=== PATIENT | male | born 1965 | race Caucasian/White ===

== ENCOUNTER 2018-10-16 08:55 | Outpatient (CLI) | payer BC, OTHER | END 2018-10-16 23:59 | disposition home or self-care (01) | LOC: RAD 08:55 | PROVIDERS: ATTEND Family Medicine | DX: M75.111 Incomplete rotator cuff tear or rupture of right shoulder, not specified as traumatic (principal); I65.23 Occlusion and stenosis of bilateral carotid arteries; R94.31 Abnormal electrocardiogram [ECG] [EKG] | CPT/HCPCS: 71046; 93017; 93350 ==

== ENCOUNTER 2018-10-20 10:11 | Inpatient (IN) | payer OTHER ==
[~2018-10-20] VITALS: Ht 170.2 cm; Wt 103.4 kg
--- NOTE | 2018-10-20 10:32 | NUR ---
PT WITH C/O INABILITY TO URINATE APPROXIMATELY 2100 10/19. ED MD AT BEDSIDE, WITH BLADDER SCAN, MD WOULD LIKE TO HAVE PT ATTEMPT TO VOID, NO ORDERS FOR CATHETER AT THIS TIME. PT DENIES N/V, SOB. PT DOES HAVE PAIN IN ABD, SIG OTHER STATES " THIS IS THE WORST HE HAS HAD IT, HE NEVER CALLS IN TO WORK AND HE DID THIS TIME" PT ON NIBP, CONT PULSE OX.
[2018-10-20 10:48] LABS: BASOPHILS # (AUTO) 0.01 x10^3/uL (0-0.1); BASOPHILS % (AUTO) 0 % (0-1); EOSINOPHILS % (AUTO) 1 % (1-7); LYMPHOCYTES # (AUTO) 1.06 x10^3/uL (1-3.4); LYMPHOCYTES % (AUTO) 6 % (22-44); MD NO; MEAN CORPUSCULAR HEMOGLOBIN 34.1 pg (27.5-34.5); MEAN CORPUSCULAR HGB CONC 34.1 g/dL (33.2-36.2); MEAN CORPUSCULAR VOLUME 100.1 fL (81-97); MEAN PLATELET VOLUME 8.3 fL (7.4-10.4); MONOCYTES # (AUTO) 0.26 x10^3/uL (0.2-0.8); MONOCYTES % (AUTO) 2 % (2-9); NEUTROPHILS % (AUTO) 92 % (42-75); PLATELET COUNT 218 x10^3/uL (130-400); RED BLOOD COUNT 4.96 x10^6/uL (4.38-5.82); RED CELL DISTRIBUTION WIDTH 13.2 % (9.4-14.8)
[2018-10-20] MEDS ORDERED: MORPHINE SULFATE 4 MG/ML, 1ML ONE ×2 (10:49→13:28)
[2018-10-20] MEDS: MORPHINE SULFATE 4 MG/ML, 1ML IVPush PRN ×2 (10:50→13:33)
[2018-10-20 10:57] LABS: ANION GAP 10 mmol/L (5-15); CALCIUM 9.7 mg/dL (8.5-10.1); CHLORIDE 111 mmol/L (98-107)
[2018-10-20] MEDS ORDERED: SODIUM CHLORIDE FLUSH 10ML SYR IVF ONE (11:00)
--- NOTE | 2018-10-20 11:00 | NUR ---
PT UNABLE TO VOID, UPDATED, ANTICPATE VITAL PLACEMENT
[2018-10-20 11:03] LABS: ALANINE AMINOTRANSFERASE 31 U/L (12-78); ALKALINE PHOSPHATASE 47 U/L (45-117); CREATININE 1.28 mg/dL (0.7-1.3)
--- NOTE | 2018-10-20 11:12 | NUR ---
PIV ESTABLISHED, PT MEDICATED FOR PAIN. PT TO ATTEMPT TO VOID
--- NOTE | 2018-10-20 12:26 | NUR ---
VITAL CATHETER PLACED, PT TOLERATED WELL. ADJUSTED IN BED FOR COMFORT. PT TO GO TO CT
[2018-10-20 12:37] LABS: MICROSCOPIC NOT IND
[2018-10-20 12:41] LABS: CULTURE INDICATED? NO
[2018-10-20] MEDS ORDERED: OMNIPAQUE 350 MG/ML, 100ML BOTTLE ONE (12:45)
[2018-10-20] MEDS ORDERED: ONDANSETRON 2MG/ML, 2ML ONE ×2 (13:20→13:21)
--- NOTE | 2018-10-20 13:24 | NUR ---
PT NO C/O NAUSEA, PROVIDED EMESIS BAG. PT DID VOMIT. EDMD AT BEDSIDE, ZOFRAN ORDERED AND ADMINISTERED. WILL CTM
[2018-10-20] MEDS ORDERED: METRONIDAZOLE PMX 500MG/100ML 100 ML IV ONE (13:30)
[2018-10-20] MEDS ORDERED: AMPICILLIN/SULBACTAM 3 GM in SODIUM CHLORIDE 0.9% 100 ML IV ONE (13:30)
[2018-10-20] MEDS ORDERED: ONDANSETRON 2MG/ML, 2ML IVPush ONE (13:30)
--- NOTE | 2018-10-20 13:43 | NUR ---
PT PLACED ON 2L NC.
[2018-10-20] MEDS ORDERED: METRONIDAZOLE PMX 500MG/100ML 100 ML ONE (13:48)
--- NOTE | 2018-10-20 13:58 | NUR ---
LAB AT FOR BLOOD CULTURES. PATIENT RECENTLY MEDICATED. IV ANBX TO HANG AFTER BLOOD CULTURES
[2018-10-20] MEDS ORDERED: hydrALAzine 20 MG/ML, 1ML IVPush PRN (14:00)
[2018-10-20] MEDS ORDERED: ACETAMINOPHEN 325 MG TABLET PO PRN (14:00)
--- NOTE | 2018-10-20 14:11 | NUR ---
DOLLY UPDATED ON PLAN OF CARE. C/O OF 8/10 PAIN BUT INTERMITTENTLY SLEEPING DURING CONVERSATON AND REQUIRING MORE OXYGEN (4L NC) THAN INITIALLY.
--- NOTE | 2018-10-20 14:43 | NUR ---
REPORT GIVEN TO MICK RUBIO
[2018-10-20 15:23] VITALS: BP 126/83
[2018-10-20] MEDS: HYDROmorphone 2 MG/ML, 1ML IVPush PRN ×3 (15:41→21:58)
[2018-10-20] MEDS: D5%-0.45NACL+KCL 20MEQ 1,000 ML IV SCH (16:47)
[2018-10-20] MEDS: FLUCONAZOLE 200 MG/100 ML 100 ML IV SCH (16:47)
[2018-10-20] MEDS ORDERED: ALPR-475 PO (17:32)
[2018-10-20] MEDS ORDERED: LISI-167 PO (17:32)
[2018-10-20] MEDS ORDERED: FLUC200T4 PO (17:32)
[2018-10-20] MEDS ORDERED: RIVA20TA PO (17:51)
[2018-10-20] MEDS: PIPERACILLIN/TAZO/PMX 4.5GM 100 ML IV SCH (18:38)
[2018-10-20 20:03] VITALS: BP 131/84
[2018-10-21] MEDS: PIPERACILLIN/TAZO/PMX 4.5GM 100 ML IV SCH ×3 (01:52→17:42)
[2018-10-21 01:59] VITALS: BP 117/74
[2018-10-21] MEDS: D5%-0.45NACL+KCL 20MEQ 1,000 ML IV SCH ×3 (02:38→20:41)
[2018-10-21 06:32] LABS: MEAN CORPUSCULAR HGB CONC 33.6 g/dL (33.2-36.2); MEAN CORPUSCULAR VOLUME 101.2 fL (81-97); MEAN PLATELET VOLUME 8.7 fL (7.4-10.4); PLATELET COUNT 194 x10^3/uL (130-400); RED BLOOD COUNT 4.82 x10^6/uL (4.38-5.82); RED CELL DISTRIBUTION WIDTH 13.5 % (9.4-14.8)
[2018-10-21 06:34] LABS: ANION GAP 7 mmol/L (5-15); CALCIUM 8.9 mg/dL (8.5-10.1); CHLORIDE 107 mmol/L (98-107)
[2018-10-21 06:36] LABS: CREATININE 1.24 mg/dL (0.7-1.3)
[2018-10-21 07:11] VITALS: BP 119/77
[2018-10-21 07:27] LABS: MD YES
[2018-10-21 07:29] LABS: BAND#(MANUAL) 2.86 x10^3/uL; BANDS%(MANUAL) 13 % (0-7); LYMPH#(MANUAL) 1.98 x10^3/uL (1-3.4); LYMPHS% (MANUAL) 9 % (22-44); METAMYELOCYTES# (MANUAL) 0.22 x10^3/uL (0-0); METAMYELOCYTES% (MANUAL) 1 % (0-1); MONOS#(MANUAL) 0.22 x10^3/uL (0.3-2.7); MONOS% (MANUAL) 1 % (2-9); SEG#(MANUAL) 16.72 x10^3/uL (1.8-6.8); SEGS% (MANUAL) 76 % (42-75)
[2018-10-21 07:30] LABS: <PLATELET ESTIMATE> ADEQUATE; <PLT MORPHOLOGY> NORMAL PLT MORPH; POLYCHROMASIA 1+
[2018-10-21] MEDS: HYDROmorphone 2 MG/ML, 1ML IVPush PRN ×4 (09:39→20:41)
[2018-10-21 12:31] VITALS: BP 119/77
[2018-10-21] MEDS: ONDANSETRON 2MG/ML, 2ML IVPush PRN ×2 (13:38→20:41)
[2018-10-21] MEDS: FLUCONAZOLE 200 MG/100 ML 100 ML IV SCH (13:39)
[2018-10-21] MEDS: OXYcodone IR 5MG TABLET PO PRN (15:34)
[2018-10-21 19:50] VITALS: BP 123/77
[2018-10-21 20:43] VITALS: BP 120/87
[2018-10-22] MEDS: HYDROmorphone 2 MG/ML, 1ML IVPush PRN ×7 (00:27→23:43)
[2018-10-22] MEDS: PIPERACILLIN/TAZO/PMX 4.5GM 100 ML IV SCH ×3 (01:34→17:12)
[2018-10-22 03:27] VITALS: BP 118/76
[2018-10-22] MEDS: D5%-0.45NACL+KCL 20MEQ 1,000 ML IV SCH ×3 (04:25→23:43)
[2018-10-22] MEDS: ONDANSETRON 2MG/ML, 2ML IVPush PRN ×2 (04:30→13:50)
[2018-10-22 07:02] VITALS: BP 119/76
[2018-10-22 08:20] LABS: MEAN CORPUSCULAR HEMOGLOBIN 33.1 pg (27.5-34.5); MEAN CORPUSCULAR VOLUME 100.2 fL (81-97); MEAN PLATELET VOLUME 8.2 fL (7.4-10.4); PLATELET COUNT 190 x10^3/uL (130-400); RED CELL DISTRIBUTION WIDTH 13.3 % (9.4-14.8)
[2018-10-22 08:28] LABS: ALBUMIN 2.8 g/dL (3.4-5.0); ANION GAP 7 mmol/L (5-15); CALCIUM 8.8 mg/dL (8.5-10.1); CHLORIDE 108 mmol/L (98-107)
[2018-10-22 08:31] LABS: ALANINE AMINOTRANSFERASE 17 U/L (12-78); ALKALINE PHOSPHATASE 60 U/L (45-117); BILIRUBIN,TOTAL 0.8 mg/dL (0.2-1.0); TOTAL PROTEIN 7.2 g/dL (6.4-8.2)
[2018-10-22 08:37] LABS: BASOPHILS # (AUTO) 0.01 x10^3/uL (0-0.1); BASOPHILS % (AUTO) 0 % (0-1); EOSINOPHILS # (AUTO) 0.01 x10^3/uL (0-0.4); EOSINOPHILS % (AUTO) 0 % (1-7); LYMPHOCYTES # (AUTO) 0.93 x10^3/uL (1-3.4); LYMPHOCYTES % (AUTO) 5 % (22-44); MD SCAN; MONOCYTES # (AUTO) 0.48 x10^3/uL (0.2-0.8); MONOCYTES % (AUTO) 3 % (2-9); NEUTROPHILS % (AUTO) 92 % (42-75)
[2018-10-22] MEDS: FLUCONAZOLE 200 MG/100 ML 100 ML IV SCH (13:50)
[2018-10-22 13:53] VITALS: BP 118/73
[2018-10-22 20:15] VITALS: BP 128/81
[2018-10-23] MEDS: PIPERACILLIN/TAZO/PMX 4.5GM 100 ML IV SCH ×3 (01:22→18:00)
[2018-10-23 03:59] VITALS: BP 114/76
[2018-10-23] MEDS: HYDROmorphone 2 MG/ML, 1ML IVPush PRN ×3 (04:27→20:44)
[2018-10-23] MEDS: ONDANSETRON 2MG/ML, 2ML IVPush PRN ×2 (05:01→14:39)
[2018-10-23 06:51] VITALS: BP 136/84
[2018-10-23] MEDS: D5%-0.45NACL+KCL 20MEQ 1,000 ML IV SCH ×2 (09:08→18:00)
[2018-10-23 09:22] LABS: MEAN CORPUSCULAR HEMOGLOBIN 32.8 pg (27.5-34.5); MEAN CORPUSCULAR HGB CONC 33.3 g/dL (33.2-36.2); MEAN CORPUSCULAR VOLUME 98.7 fL (81-97); PLATELET COUNT 204 x10^3/uL (130-400); RED BLOOD COUNT 4.44 x10^6/uL (4.38-5.82); RED CELL DISTRIBUTION WIDTH 13.3 % (9.4-14.8)
[2018-10-23 09:28] LABS: ANION GAP 9 mmol/L (5-15); CALCIUM 8.4 mg/dL (8.5-10.1); CHLORIDE 107 mmol/L (98-107); CREATININE 0.87 mg/dL (0.7-1.3)
[2018-10-23 09:43] LABS: MD YES
[2018-10-23 09:45] LABS: <PLATELET ESTIMATE> ADEQUATE; <PLT MORPHOLOGY> NORMAL PLT MORPH; <RBC MORPHOLOGY> NORMAL; BAND#(MANUAL) 0.97 x10^3/uL; BANDS%(MANUAL) 7 % (0-7); EOS#(MANUAL) 0.41 x10^3/uL (0.0-0.4); EOS% (MANUAL) 3 % (1-7); LYMPH#(MANUAL) 1.24 x10^3/uL (1-3.4); LYMPHS% (MANUAL) 9 % (22-44); MONOS#(MANUAL) 0.97 x10^3/uL (0.3-2.7); MONOS% (MANUAL) 7 % (2-9); SEG#(MANUAL) 10.21 x10^3/uL (1.8-6.8); SEGS% (MANUAL) 74 % (42-75)
[2018-10-23] MEDS ORDERED: POTASSIUM CHLORIDE 20 MEQ TAB.ER.PRT PO ONE (10:30)
[2018-10-23] MEDS: DOCUSATE 100 MG CAPSULE PO SCH ×2 (11:31→20:44)
[2018-10-23 12:53] VITALS: BP 154/91
[2018-10-23] MEDS: FLUCONAZOLE 200 MG/100 ML 100 ML IV SCH (14:31)
[2018-10-23] MEDS: OXYcodone IR 5MG TABLET PO PRN (18:40)
[2018-10-23 21:02] VITALS: BP 129/87
[2018-10-24] MEDS: D5%-0.45NACL+KCL 20MEQ 1,000 ML IV SCH ×3 (01:58→20:31)
[2018-10-24] MEDS: PIPERACILLIN/TAZO/PMX 4.5GM 100 ML IV SCH ×3 (01:58→17:22)
[2018-10-24 02:14] VITALS: BP 151/83
[2018-10-24] MEDS: HYDROmorphone 2 MG/ML, 1ML IVPush PRN (03:23)
[2018-10-24 07:49] VITALS: BP 144/91
[2018-10-24] MEDS: DOCUSATE 100 MG CAPSULE PO SCH ×2 (08:54→20:55)
[2018-10-24 09:24] LABS: MEAN CORPUSCULAR HEMOGLOBIN 33.1 pg (27.5-34.5); MEAN CORPUSCULAR HGB CONC 33.7 g/dL (33.2-36.2); MEAN CORPUSCULAR VOLUME 98.3 fL (81-97); PLATELET COUNT 199 x10^3/uL (130-400); RED BLOOD COUNT 4.31 x10^6/uL (4.38-5.82); RED CELL DISTRIBUTION WIDTH 13.2 % (9.4-14.8)
[2018-10-24 09:27] LABS: ANION GAP 7 mmol/L (5-15); CALCIUM 8.5 mg/dL (8.5-10.1); CHLORIDE 107 mmol/L (98-107); CREATININE 0.87 mg/dL (0.7-1.3)
[2018-10-24 09:41] LABS: BASOPHILS # (AUTO) 0.03 x10^3/uL (0-0.1); BASOPHILS % (AUTO) 0 % (0-1); EOSINOPHILS # (AUTO) 0.07 x10^3/uL (0-0.4); EOSINOPHILS % (AUTO) 1 % (1-7); LYMPHOCYTES # (AUTO) 1.28 x10^3/uL (1-3.4); LYMPHOCYTES % (AUTO) 11 % (22-44); MD SCAN; MONOCYTES # (AUTO) 0.91 x10^3/uL (0.2-0.8); MONOCYTES % (AUTO) 8 % (2-9); NEUTROPHILS # (AUTO) 9.14 x10^3/uL (1.8-6.8); NEUTROPHILS % (AUTO) 80 % (42-75)
[2018-10-24] MEDS: SIMETHICONE 125 MG CHEW TAB PO PRN ×2 (10:37→17:39)
[2018-10-24] MEDS: OXYcodone IR 5MG TABLET PO PRN ×3 (10:44→19:16)
[2018-10-24 13:19] VITALS: BP 149/96
[2018-10-24] MEDS: FLUCONAZOLE 200 MG/100 ML 100 ML IV SCH (14:53)
[2018-10-24] MEDS: PROMETHAZINE 25MG TABLET PO PRN (15:03)
[2018-10-24 19:02] VITALS: BP 127/75
[2018-10-24] MEDS: MELATONIN 5 MG TABLET PO PRN (20:55)
[2018-10-25] MEDS: PIPERACILLIN/TAZO/PMX 4.5GM 100 ML IV SCH ×3 (02:07→18:09)
[2018-10-25 02:08] VITALS: BP 124/76
[2018-10-25] MEDS: SIMETHICONE 125 MG CHEW TAB PO PRN ×2 (02:16→12:13)
[2018-10-25] MEDS: OXYcodone IR 5MG TABLET PO PRN ×2 (02:20→12:10)
[2018-10-25] MEDS: D5%-0.45NACL+KCL 20MEQ 1,000 ML IV SCH ×2 (05:12→16:00)
[2018-10-25 05:58] LABS: BASOPHILS # (AUTO) 0.06 x10^3/uL (0-0.1); BASOPHILS % (AUTO) 1 % (0-1); EOSINOPHILS # (AUTO) 0.12 x10^3/uL (0-0.4); EOSINOPHILS % (AUTO) 1 % (1-7); LYMPHOCYTES # (AUTO) 1.83 x10^3/uL (1-3.4); LYMPHOCYTES % (AUTO) 15 % (22-44); MD NO; MEAN CORPUSCULAR HEMOGLOBIN 33.8 pg (27.5-34.5); MEAN CORPUSCULAR HGB CONC 33.7 g/dL (33.2-36.2); MEAN CORPUSCULAR VOLUME 100.2 fL (81-97); MEAN PLATELET VOLUME 8.1 fL (7.4-10.4); MONOCYTES # (AUTO) 1.24 x10^3/uL (0.2-0.8); MONOCYTES % (AUTO) 10 % (2-9); NEUTROPHILS # (AUTO) 9.28 x10^3/uL (1.8-6.8); NEUTROPHILS % (AUTO) 74 % (42-75); PLATELET COUNT 206 x10^3/uL (130-400); RED BLOOD COUNT 4.21 x10^6/uL (4.38-5.82); RED CELL DISTRIBUTION WIDTH 13.5 % (9.4-14.8)
[2018-10-25 06:03] LABS: ANION GAP 7 mmol/L (5-15); CALCIUM 8.8 mg/dL (8.5-10.1); CHLORIDE 103 mmol/L (98-107); CREATININE 0.83 mg/dL (0.7-1.3)
[2018-10-25 08:25] VITALS: BP 131/81
[2018-10-25] MEDS: DOCUSATE 100 MG CAPSULE PO SCH ×2 (09:00→12:11)
[2018-10-25] MEDS: PROMETHAZINE 25MG TABLET PO PRN (12:35)
[2018-10-25 13:00] VITALS: BP 127/74
[2018-10-25] MEDS: FLUCONAZOLE 200 MG/100 ML 100 ML IV SCH (14:59)
[2018-10-25 18:43] VITALS: BP 139/87
[2018-10-25] MEDS ORDERED: KETOROLAC 30 MG/1 ML IVPush ONE (19:30)
[2018-10-25] MEDS: MELATONIN 5 MG TABLET PO PRN (22:42)
[2018-10-26 01:21] VITALS: BP 125/76
[2018-10-26] MEDS: PIPERACILLIN/TAZO/PMX 4.5GM 100 ML IV SCH (01:53)
[2018-10-26] MEDS: D5%-0.45NACL+KCL 20MEQ 1,000 ML IV SCH (01:53)
[2018-10-26 05:11] LABS: BASOPHILS # (AUTO) 0.05 x10^3/uL (0-0.1); BASOPHILS % (AUTO) 0 % (0-1); EOSINOPHILS # (AUTO) 0.21 x10^3/uL (0-0.4); EOSINOPHILS % (AUTO) 2 % (1-7); LYMPHOCYTES % (AUTO) 19 % (22-44); MD NO; MEAN CORPUSCULAR HEMOGLOBIN 33.8 pg (27.5-34.5); MEAN CORPUSCULAR HGB CONC 33.7 g/dL (33.2-36.2); MEAN CORPUSCULAR VOLUME 100.3 fL (81-97); MEAN PLATELET VOLUME 8.1 fL (7.4-10.4); MONOCYTES # (AUTO) 1.17 x10^3/uL (0.2-0.8); MONOCYTES % (AUTO) 10 % (2-9); NEUTROPHILS # (AUTO) 8.14 x10^3/uL (1.8-6.8); NEUTROPHILS % (AUTO) 69 % (42-75); PLATELET COUNT 223 x10^3/uL (130-400); RED BLOOD COUNT 4.17 x10^6/uL (4.38-5.82); RED CELL DISTRIBUTION WIDTH 13.4 % (9.4-14.8)
[2018-10-26 05:22] LABS: ANION GAP 8 mmol/L (5-15); CALCIUM 8.6 mg/dL (8.5-10.1); CHLORIDE 104 mmol/L (98-107); CREATININE 1.05 mg/dL (0.7-1.3)
[2018-10-26 07:04] VITALS: BP 158/93
[2018-10-26] MEDS ORDERED: POTASSIUM CHLORIDE 40 MEQ in SODIUM CHLORIDE 0.9% 500 ML IV ONE (07:30)
[2018-10-26] MEDS ORDERED: COLCHICINE 0.6 MG TABLET PO ONE (07:30)
[2018-10-26] MEDS ORDERED: metroNIDAZOLE 500 MG TABLET PO SCH (07:30)
[2018-10-26] MEDS ORDERED: COLCHICINE 0.6 MG TABLET PO SCH (09:00)
[2018-10-26] MEDS ORDERED: CIPROFLOXACIN 500 MG TABLET PO SCH (09:00)
[2018-10-26] MEDS: DOCUSATE 100 MG CAPSULE PO SCH (09:46)
[2018-10-26] MEDS ORDERED: CIPR500T87 PO (13:37)
[2018-10-26] MEDS ORDERED: COLC0.6T37 PO (13:37)
[2018-10-26] MEDS ORDERED: METR500T PO (13:37)
[2018-10-26] MEDS ORDERED: COLCHICINE 0.6 MG TABLET PO STA (13:38)
[2018-10-26 14:15] VITALS: BP 135/79
[2018-10-27] MEDS ORDERED: FLUCONAZOLE 200 MG TABLET PO SCH (09:00)
== END 2018-10-26 16:10 | disposition home or self-care (01) | DRG 872 ==
LOC: ED 12:23 → EDIP 14:01 → 4EST 15:11
PROVIDERS: ADMIT Internal Medicine; ATTEND Internal Medicine
PROC: 0T9B70Z Drainage of Bladder with Drainage Device, Via Natural or Artificial Opening (ICD-10-PCS; principal; 2018-10-20)
DX: A41.4 Sepsis due to anaerobes (principal); D68.51 Activated protein C resistance; F13.20 Sedative, hypnotic or anxiolytic dependence, uncomplicated; K57.20 Diverticulitis of large intestine with perforation and abscess without bleeding; B38.0 Acute pulmonary coccidioidomycosis; F12.90 Cannabis use, unspecified, uncomplicated; F41.9 Anxiety disorder, unspecified; G47.00 Insomnia, unspecified; I10 Essential (primary) hypertension; K59.00 Constipation, unspecified; M10.9 Gout, unspecified; R32 Unspecified urinary incontinence; Z79.01 Long term (current) use of anticoagulants; Z86.711 Personal history of pulmonary embolism; Z86.718 Personal history of other venous thrombosis and embolism
CPT/HCPCS: 36415; 99291; Q0169; 74177; 80048; 80053; 81003; 83605; 83690; 85025; 87040; 87076; 96374; 96375; G0378; J0295; J1170; J1885; J2405; J2543; J3480; Q9967; J1450; J2270; J7040

== ENCOUNTER 2018-11-27 09:28 | Inpatient (IN) | payer OTHER ==
[~2018-11-27] VITALS: Ht 171.4 cm; Wt 102.5 kg
[~2018-11-27 09:28] MED LIST: ALBU18HF INH; ALPR0.5T7 PO; CIPR500T87 PO; COLC0.6T37 PO; FLUC200T4 PO; LISI-167 PO; METR-90 PO; METR500T PO; NEOM500T PO; OMEP20TA62 PO; RIVA20TA PO; SIME80TA15 PO
[2018-11-27] MEDS ORDERED: LACTATED RINGERS 1,000 ML IV SCH (09:51)
[2018-11-27 09:53] VITALS: BP 128/66
[2018-11-27] MEDS ORDERED: BUPIVACAINE/PF-EPI 0.5% 1:200K ONE (10:11)
[2018-11-27] MEDS ORDERED: INDOCYANINE GREEN 25 MG VIAL ONE (10:12)
[2018-11-27] MEDS ORDERED: LABETALOL 5MG/ML, 20ML IV PRN (10:30)
[2018-11-27] MEDS ORDERED: ONDANSETRON 2MG/ML, 2ML IVPush PRN (10:30)
[2018-11-27] MEDS ORDERED: OXYcodone 5 MG/5 ML ORAL.SOL UDC PO PRN (10:30)
[2018-11-27] MEDS ORDERED: MIDAZOLAM 1 MG/ML, 2ML IV PRN (10:30)
[2018-11-27] MEDS ORDERED: MEPERIDINE/PF 25MG/0.5ML IVPush PRN (10:30)
[2018-11-27] MEDS ORDERED: ROCURONIUM 10MG/ML,5ML ONE (10:39)
[2018-11-27] MEDS ORDERED: DEXAMETHASONE 4 MG/ML, 1ML ONE (10:39)
[2018-11-27] MEDS ORDERED: KETAMINE 10 MG/ML, 20ML ONE (10:39)
[2018-11-27] MEDS ORDERED: ONDANSETRON 2MG/ML, 2ML ONE (10:39)
[2018-11-27] MEDS ORDERED: PROPOFOL 10 MG/ML, 20ML ONE (10:39)
[2018-11-27] MEDS ORDERED: CEFOTETAN PMX 2GM/50ML 50 ML IVPB ONE (10:39)
[2018-11-27] MEDS ORDERED: METOCLOPRAMIDE 5 MG/ML, 2ML ONE (10:39)
[2018-11-27] MEDS ORDERED: FENTANYL PF 100 MCG/2ML ONE ×4 (10:44→14:03)
[2018-11-27] MEDS ORDERED: MIDAZOLAM 1 MG/ML, 2ML ONE (10:44)
[2018-11-27] MEDS ORDERED: SUGAMMADEX 200 MG/2 ML IVPush ONE (13:00)
[2018-11-27] MEDS ORDERED: OXYcodone 5 MG/5 ML ORAL.SOL UDC ONE (13:43)
[2018-11-27] MEDS: FENTANYL PF 100 MCG/2ML IV PRN ×4 (13:50→14:08)
[2018-11-27] MEDS ORDERED: HYDROmorphone 2 MG/ML, 1ML ONE (14:20)
[2018-11-27] MEDS: HYDROmorphone 1 MG/ML, 1ML INJ IV PRN ×4 (14:22→14:38)
[2018-11-27] MEDS ORDERED: MEPERIDINE/PF 25MG/ML,1ML ONE (14:44)
[2018-11-27] MEDS ORDERED: DEXAMETHASONE 4 MG/ML, 1ML IVPush PRN (17:00)
[2018-11-27] MEDS ORDERED: HALOPERIDOL 5 MG/ML IVPush PRN (17:00)
[2018-11-27] MEDS ORDERED: ALBUTEROL SULFATE 2.5 MG/3 ML NPPB PRN (17:00)
[2018-11-27] MEDS ORDERED: LORazepam 2 MG/ML, 1ML IVPush PRN (17:00)
[2018-11-27] MEDS ORDERED: LORazepam 1MG TABLET PO PRN (17:00)
[2018-11-27] MEDS ORDERED: SCOPOLAMINE PATCH, 1.5MG PATCH.TD72 TD PRN (17:00)
[2018-11-27] MEDS ORDERED: ONDANSETRON 2MG/ML, 2ML IV PRN (17:00)
[2018-11-27] MEDS ORDERED: DIPHENHYDRAMINE 25 MG CAPSULE PO PRN (17:00)
[2018-11-27] MEDS ORDERED: TRAZODONE 50MG TABLET PO PRN (17:00)
[2018-11-27] MEDS: ACETAMINOPHEN 500 MG TABLET PO SCH ×2 (17:43→23:49)
[2018-11-27] MEDS: OXYcodone IR 5MG TABLET PO PRN ×3 (17:44→23:49)
[2018-11-27 18:45] VITALS: BP 134/88
[2018-11-27] MEDS: MORPHINE SULFATE 4 MG/ML, 1ML IVPush PRN ×2 (19:37→22:40)
[2018-11-27] MEDS: DIPHENHYDRAMINE 50 MG/ML, 1ML IVPush PRN (19:47)
[2018-11-27] MEDS: OMEPRAZOLE 20 MG CAPSULE.DR PO SCH (20:54)
[2018-11-27] MEDS: LISINOPRIL 10 MG TABLET PO SCH (20:56)
[2018-11-27] MEDS: LACTATED RINGERS 1,000 ML IV SCH (20:56)
[2018-11-27] MEDS: PIPERACILLIN/TAZO/PMX 3.375GM 50 ML IV SCH (21:46)
[2018-11-27] MEDS: KETOROLAC 30 MG/1 ML IV SCH (23:50)
[2018-11-28 00:05] VITALS: BP 119/82
[2018-11-28] MEDS: OXYcodone IR 5MG TABLET PO PRN ×3 (03:22→13:28)
[2018-11-28] MEDS: PIPERACILLIN/TAZO/PMX 3.375GM 50 ML IV SCH ×4 (03:22→23:12)
[2018-11-28 03:37] LABS: MEAN CORPUSCULAR HEMOGLOBIN 32.1 pg (27.5-34.5); MEAN CORPUSCULAR HGB CONC 33.2 g/dL (33.2-36.2); MEAN CORPUSCULAR VOLUME 96.6 fL (81-97); MEAN PLATELET VOLUME 8.1 fL (7.4-10.4); PLATELET COUNT 314 x10^3/uL (130-400); RED CELL DISTRIBUTION WIDTH 13.6 % (9.4-14.8)
[2018-11-28 03:47] LABS: ANION GAP 8 mmol/L (5-15); CHLORIDE 107 mmol/L (98-107); CREATININE 0.84 mg/dL (0.7-1.3)
[2018-11-28 03:53] LABS: BASOPHILS # (AUTO) 0.01 x10^3/uL (0-0.1); BASOPHILS % (AUTO) 0 % (0-1); EOSINOPHILS % (AUTO) 0 % (1-7); LYMPHOCYTES # (AUTO) 1.47 x10^3/uL (1-3.4); LYMPHOCYTES % (AUTO) 10 % (22-44); MD SCAN; MONOCYTES # (AUTO) 0.67 x10^3/uL (0.2-0.8); MONOCYTES % (AUTO) 5 % (2-9); NEUTROPHILS # (AUTO) 12.83 x10^3/uL (1.8-6.8); NEUTROPHILS % (AUTO) 86 % (42-75)
[2018-11-28 04:11] VITALS: BP 108/75
[2018-11-28] MEDS: ACETAMINOPHEN 500 MG TABLET PO SCH ×4 (05:37→18:00)
[2018-11-28] MEDS: KETOROLAC 30 MG/1 ML IV SCH ×3 (05:37→18:00)
[2018-11-28] MEDS: MORPHINE SULFATE 4 MG/ML, 1ML IVPush PRN ×2 (05:43→09:05)
[2018-11-28] MEDS: DIPHENHYDRAMINE 50 MG/ML, 1ML IVPush PRN (06:10)
[2018-11-28 07:07] VITALS: BP 109/76
[2018-11-28] MEDS: ENOXAPARIN 40 MG/0.4 ML SQ SCH (09:06)
[2018-11-28 12:53] VITALS: BP 91/63
[2018-11-28] MEDS ORDERED: FENTANYL PF 250 MCG/5ML ONE (16:49)
[2018-11-28] MEDS ORDERED: NEOSTIGMINE 1 MG/ML, 10ML ONE (17:17)
[2018-11-28] MEDS ORDERED: ONDANSETRON 2MG/ML, 2ML ONE (17:17)
[2018-11-28] MEDS ORDERED: DEXAMETHASONE 4 MG/ML, 1ML ONE (17:17)
[2018-11-28] MEDS ORDERED: SUCCINYLCHOLINE 20 MG/ML, 10ML ONE (17:17)
[2018-11-28] MEDS ORDERED: ROCURONIUM 10MG/ML,5ML ONE (17:17)
[2018-11-28] MEDS ORDERED: GLYCOPYRROLATE 0.2MG/1ML, 5ML ONE (17:17)
[2018-11-28] MEDS ORDERED: PROPOFOL 10 MG/ML, 20ML ONE (17:17)
[2018-11-28] MEDS ORDERED: VASOPRESSIN 20 UNIT/ML, 1ML ONE (17:17)
[2018-11-28] MEDS ORDERED: SUGAMMADEX 200 MG/2 ML IVPush ONE (17:56)
[2018-11-28] MEDS: LACTATED RINGERS 1,000 ML IV SCH ×2 (18:00→20:53)
[2018-11-28] MEDS ORDERED: ALBUTEROL HFA 90 MCG/SPRAY ONE (18:13)
[2018-11-28] MEDS ORDERED: FENTANYL PF 100 MCG/2ML ONE (18:26)
[2018-11-28] MEDS ORDERED: LORazepam 2 MG/ML, 1ML ONE (18:27)
[2018-11-28] MEDS ORDERED: HYDROmorphone 2 MG/ML, 1ML ONE (18:27)
[2018-11-28] MEDS ORDERED: MEPERIDINE/PF 25MG/ML,1ML ONE (18:37)
[2018-11-28] MEDS ORDERED: PROMETHAZINE 25 MG/ML, 1ML ONE (18:50)
[2018-11-28] MEDS ORDERED: DIPHENHYDRAMINE 50 MG/ML, 1ML IVPush PRN (19:00)
[2018-11-28] MEDS ORDERED: METOCLOPRAMIDE 5 MG/ML, 2ML IV PRN (19:00)
[2018-11-28] MEDS ORDERED: PROMETHAZINE 25 MG/ML, 1ML IM PRN (19:00)
[2018-11-28] MEDS ORDERED: PROMETHAZINE 25 MG/ML, 1ML IV PRN (19:00)
[2018-11-28] MEDS ORDERED: FENTANYL PF 100 MCG/2ML IV PRN (19:00)
[2018-11-28] MEDS ORDERED: HYDROmorphone 2 MG/ML, 1ML IVPush PRN (19:00)
[2018-11-28] MEDS ORDERED: LORazepam 2 MG/ML, 1ML IVPush PRN (19:00)
[2018-11-28] MEDS ORDERED: MEPERIDINE/PF 25MG/0.5ML IVPush PRN (19:00)
[2018-11-28 20:03] VITALS: BP 100/72
[2018-11-28] MEDS: LISINOPRIL 10 MG TABLET PO SCH (20:43)
[2018-11-28] MEDS: OMEPRAZOLE 20 MG CAPSULE.DR PO SCH (20:43)
[2018-11-28] MEDS ORDERED: ACETAMINOPHEN 325 MG TABLET PO PRN (21:00)
[2018-11-28] MEDS ORDERED: DIPHENHYDRAMINE 50 MG/ML, 1ML IV PRN (21:00)
[2018-11-28] MEDS ORDERED: ENALAPRILAT 1.25 MG/ML, 2ML IV PRN (21:00)
[2018-11-28] MEDS ORDERED: ACETAMINOPHEN 650 MG SUPP PR PRN (21:00)
[2018-11-28] MEDS ORDERED: DO NOT STOP ANTIBIOTICS AFTER 24HRS MC SCH (21:00)
[2018-11-28] MEDS ORDERED: LORazepam 2 MG/ML, 1ML IV PRN (21:00)
[2018-11-28] MEDS ORDERED: hydrALAzine 20 MG/ML, 1ML IV PRN (21:00)
[2018-11-28] MEDS ORDERED: ONDANSETRON 2MG/ML, 2ML IV PRN (21:00)
[2018-11-29 00:38] VITALS: BP 87/57
[2018-11-29] MEDS: KETOROLAC 30 MG/1 ML IV SCH ×4 (01:08→18:00)
[2018-11-29] MEDS ORDERED: LACTATED RINGERS 1,000 ML IVBOLUS ONE (01:30)
[2018-11-29 03:21] LABS: ANION GAP 6 mmol/L (5-15); CALCIUM 8.2 mg/dL (8.5-10.1); CHLORIDE 105 mmol/L (98-107); CREATININE 1.27 mg/dL (0.7-1.3)
[2018-11-29 03:23] LABS: MEAN CORPUSCULAR HEMOGLOBIN 31.4 pg (27.5-34.5); MEAN CORPUSCULAR HGB CONC 32.4 g/dL (33.2-36.2); MEAN CORPUSCULAR VOLUME 96.8 fL (81-97); PLATELET COUNT 218 x10^3/uL (130-400); RED BLOOD COUNT 3.93 x10^6/uL (4.38-5.82); RED CELL DISTRIBUTION WIDTH 13.5 % (9.4-14.8)
[2018-11-29 04:05] LABS: BASOPHILS # (AUTO) 0.03 x10^3/uL (0-0.1); BASOPHILS % (AUTO) 0 % (0-1); EOSINOPHILS % (AUTO) 0 % (1-7); LYMPHOCYTES % (AUTO) 5 % (22-44); MD SCAN; MONOCYTES # (AUTO) 0.51 x10^3/uL (0.2-0.8); MONOCYTES % (AUTO) 2 % (2-9); NEUTROPHILS # (AUTO) 21.44 x10^3/uL (1.8-6.8); NEUTROPHILS % (AUTO) 93 % (42-75)
[2018-11-29 04:18] VITALS: BP 98/64
[2018-11-29] MEDS: ACETAMINOPHEN 500 MG TABLET PO SCH ×4 (06:00→18:00)
[2018-11-29] MEDS: PIPERACILLIN/TAZO/PMX 3.375GM 50 ML IV SCH ×3 (06:03→17:34)
[2018-11-29] MEDS: LACTATED RINGERS 1,000 ML IV SCH ×2 (06:03→17:00)
[2018-11-29 08:07] VITALS: BP 95/60
[2018-11-29] MEDS: ENOXAPARIN 40 MG/0.4 ML SQ SCH (09:27)
[2018-11-29] MEDS ORDERED: MAGNESIUM SULFATE PMX 2GM/50ML 50 ML IV ONE (10:00)
[2018-11-29 13:25] VITALS: BP 126/67
[2018-11-29] MEDS: D5%-0.45NACL+KCL 20MEQ 1,000 ML IV SCH ×2 (17:00→17:34)
[2018-11-29] MEDS: LISINOPRIL 10 MG TABLET PO SCH (21:29)
[2018-11-29] MEDS: OMEPRAZOLE 20 MG CAPSULE.DR PO SCH (21:29)
[2018-11-29] MEDS: LORazepam 1MG TABLET PO PRN (21:30)
[2018-11-29 22:00] VITALS: BP 151/90
[2018-11-30] MEDS: PIPERACILLIN/TAZO/PMX 3.375GM 50 ML IV SCH ×5 (00:25→23:24)
[2018-11-30] MEDS: ACETAMINOPHEN 500 MG TABLET PO SCH ×5 (00:25→23:25)
[2018-11-30] MEDS: KETOROLAC 30 MG/1 ML IV SCH ×5 (00:25→23:25)
[2018-11-30 01:21] VITALS: BP 100/68
[2018-11-30] MEDS: LACTATED RINGERS 1,000 ML IV SCH ×3 (03:00→17:36)
[2018-11-30 03:39] LABS: MEAN CORPUSCULAR HEMOGLOBIN 32.6 pg (27.5-34.5); MEAN CORPUSCULAR HGB CONC 33.4 g/dL (33.2-36.2); MEAN CORPUSCULAR VOLUME 97.6 fL (81-97); PLATELET COUNT 194 x10^3/uL (130-400); RED BLOOD COUNT 3.47 x10^6/uL (4.38-5.82); RED CELL DISTRIBUTION WIDTH 13.9 % (9.4-14.8)
[2018-11-30 03:50] LABS: ANION GAP 7 mmol/L (5-15); CALCIUM 8.1 mg/dL (8.5-10.1); CHLORIDE 106 mmol/L (98-107); CREATININE 0.85 mg/dL (0.7-1.3)
[2018-11-30 04:22] LABS: BASOPHILS # (AUTO) 0.02 x10^3/uL (0-0.1); BASOPHILS % (AUTO) 0 % (0-1); EOSINOPHILS # (AUTO) 0.01 x10^3/uL (0-0.4); EOSINOPHILS % (AUTO) 0 % (1-7); LYMPHOCYTES # (AUTO) 1.16 x10^3/uL (1-3.4); LYMPHOCYTES % (AUTO) 7 % (22-44); MD MORPH REVIEW ONLY; MONOCYTES % (AUTO) 1 % (2-9); NEUTROPHILS # (AUTO) 15.33 x10^3/uL (1.8-6.8); NEUTROPHILS % (AUTO) 92 % (42-75)
[2018-11-30 04:23] LABS: ANISOCYTOSIS 1+; ECHINOCYTES 1+; POLYCHROMASIA 1+
[2018-11-30 04:25] LABS: <PLATELET ESTIMATE> ADEQUATE; <PLT MORPHOLOGY> NORMAL PLT MORPH; TEAR DROPS 1+
[2018-11-30 08:10] VITALS: BP 132/78
[2018-11-30] MEDS: ENOXAPARIN 40 MG/0.4 ML SQ SCH (09:14)
[2018-11-30] MEDS: FLUCONAZOLE 200 MG TABLET PO SCH (11:58)
[2018-11-30 12:28] VITALS: BP 120/82
[2018-11-30] MEDS: D5%-0.45NACL+KCL 20MEQ 1,000 ML IV SCH (14:37)
[2018-11-30] MEDS: DIPHENHYDRAMINE 25 MG CAPSULE PO PRN (17:14)
[2018-11-30 20:00] VITALS: BP 114/76
[2018-11-30] MEDS: OMEPRAZOLE 20 MG CAPSULE.DR PO SCH (20:05)
[2018-11-30] MEDS: LISINOPRIL 10 MG TABLET PO SCH (20:05)
[2018-12-01] MEDS: LACTATED RINGERS 1,000 ML IV SCH ×3 (02:24→17:25)
[2018-12-01 02:35] VITALS: BP 101/65
[2018-12-01] MEDS: KETOROLAC 30 MG/1 ML IV SCH ×3 (05:23→17:23)
[2018-12-01] MEDS: ACETAMINOPHEN 500 MG TABLET PO SCH ×3 (05:23→17:23)
[2018-12-01] MEDS: PIPERACILLIN/TAZO/PMX 3.375GM 50 ML IV SCH ×4 (05:24→22:46)
[2018-12-01 05:50] LABS: MEAN CORPUSCULAR HEMOGLOBIN 32.5 pg (27.5-34.5); MEAN CORPUSCULAR HGB CONC 33.3 g/dL (33.2-36.2); MEAN CORPUSCULAR VOLUME 97.6 fL (81-97); MEAN PLATELET VOLUME 8.2 fL (7.4-10.4); PLATELET COUNT 192 x10^3/uL (130-400); RED BLOOD COUNT 3.37 x10^6/uL (4.38-5.82); RED CELL DISTRIBUTION WIDTH 13.9 % (9.4-14.8)
[2018-12-01 06:07] LABS: ANION GAP 7 mmol/L (5-15); CALCIUM 8.2 mg/dL (8.5-10.1); CHLORIDE 104 mmol/L (98-107)
[2018-12-01 06:08] LABS: CREATININE 0.69 mg/dL (0.7-1.3)
[2018-12-01 06:27] LABS: BASOPHILS # (AUTO) 0.01 x10^3/uL (0-0.1); BASOPHILS % (AUTO) 0 % (0-1); EOSINOPHILS % (AUTO) 0 % (1-7); LYMPHOCYTES # (AUTO) 0.96 x10^3/uL (1-3.4); LYMPHOCYTES % (AUTO) 5 % (22-44); MD SCAN; MONOCYTES # (AUTO) 0.28 x10^3/uL (0.2-0.8); MONOCYTES % (AUTO) 2 % (2-9); NEUTROPHILS # (AUTO) 17.09 x10^3/uL (1.8-6.8); NEUTROPHILS % (AUTO) 93 % (42-75)
[2018-12-01 08:16] VITALS: BP 109/70
[2018-12-01] MEDS: FLUCONAZOLE 200 MG TABLET PO SCH (08:21)
[2018-12-01] MEDS: OXYcodone IR 5MG TABLET PO PRN ×5 (08:21→22:45)
[2018-12-01] MEDS: ENOXAPARIN 80 MG/0.8 ML SQ SCH ×2 (09:34→20:15)
[2018-12-01] MEDS: D5%-0.45NACL+KCL 20MEQ 1,000 ML IV SCH (09:34)
[2018-12-01 13:15] VITALS: BP 122/75
[2018-12-01] MEDS: LISINOPRIL 10 MG TABLET PO SCH (20:15)
[2018-12-01] MEDS: OMEPRAZOLE 20 MG CAPSULE.DR PO SCH (20:15)
[2018-12-01 20:18] VITALS: BP 131/90
[2018-12-01] MEDS: LORazepam 1MG TABLET PO PRN (22:46)
[2018-12-02] MEDS: ACETAMINOPHEN 500 MG TABLET PO SCH ×3 (00:45→12:00)
[2018-12-02] MEDS: KETOROLAC 30 MG/1 ML IV SCH ×4 (00:45→18:02)
[2018-12-02 01:00] VITALS: BP 153/97
[2018-12-02 02:00] VITALS: BP 121/75
[2018-12-02] MEDS: LACTATED RINGERS 1,000 ML IV SCH ×3 (03:00→18:02)
[2018-12-02] MEDS: PIPERACILLIN/TAZO/PMX 3.375GM 50 ML IV SCH ×3 (05:30→16:56)
[2018-12-02] MEDS: OXYcodone IR 5MG TABLET PO PRN ×5 (06:31→22:18)
[2018-12-02] MEDS: DIPHENHYDRAMINE 25 MG CAPSULE PO PRN ×2 (06:36→21:19)
[2018-12-02 08:02] LABS: ANION GAP 6 mmol/L (5-15); CALCIUM 8.2 mg/dL (8.5-10.1); CHLORIDE 104 mmol/L (98-107)
[2018-12-02 08:03] LABS: CREATININE 0.78 mg/dL (0.7-1.3)
[2018-12-02 08:10] LABS: MEAN CORPUSCULAR HEMOGLOBIN 31.7 pg (27.5-34.5); MEAN CORPUSCULAR VOLUME 96.1 fL (81-97); PLATELET COUNT 222 x10^3/uL (130-400); RED CELL DISTRIBUTION WIDTH 13.9 % (9.4-14.8)
[2018-12-02] MEDS: ENOXAPARIN 100 MG/ML SQ SCH ×2 (08:23→21:06)
[2018-12-02] MEDS: FLUCONAZOLE 200 MG TABLET PO SCH (08:23)
[2018-12-02 08:26] LABS: BASOPHILS # (AUTO) 0.03 x10^3/uL (0-0.1); BASOPHILS % (AUTO) 0 % (0-1); EOSINOPHILS # (AUTO) 0.03 x10^3/uL (0-0.4); EOSINOPHILS % (AUTO) 0 % (1-7); LYMPHOCYTES # (AUTO) 1.44 x10^3/uL (1-3.4); LYMPHOCYTES % (AUTO) 11 % (22-44); MD SCAN; MONOCYTES # (AUTO) 0.71 x10^3/uL (0.2-0.8); MONOCYTES % (AUTO) 5 % (2-9); NEUTROPHILS # (AUTO) 11.48 x10^3/uL (1.8-6.8); NEUTROPHILS % (AUTO) 84 % (42-75)
[2018-12-02 08:30] VITALS: BP 140/91
[2018-12-02] MEDS: D5%-0.45NACL+KCL 20MEQ 1,000 ML IV SCH (10:01)
[2018-12-02] MEDS ORDERED: POTASSIUM CHLORIDE 20 MEQ TAB.ER.PRT PO ONE (11:00)
[2018-12-02 12:34] VITALS: BP 150/87
[2018-12-02] MEDS: MICAFUNGIN 100 MG in SODIUM CHLORIDE 0.9% 100 ML IV SCH (12:36)
[2018-12-02 13:50] VITALS: BP 149/83
[2018-12-02 19:56] VITALS: BP 140/95
[2018-12-02] MEDS: LISINOPRIL 10 MG TABLET PO SCH (21:05)
[2018-12-02] MEDS: OMEPRAZOLE 20 MG CAPSULE.DR PO SCH (21:05)
[2018-12-03] MEDS: LACTATED RINGERS 1,000 ML IV SCH ×2 (03:00→09:22)
[2018-12-03 04:00] VITALS: BP 148/86
[2018-12-03] MEDS: OXYcodone IR 5MG TABLET PO PRN ×6 (04:56→22:56)
[2018-12-03 05:12] LABS: BASOPHILS # (AUTO) 0.03 x10^3/uL (0-0.1); BASOPHILS % (AUTO) 0 % (0-1); EOSINOPHILS # (AUTO) 0.18 x10^3/uL (0-0.4); EOSINOPHILS % (AUTO) 1 % (1-7); LYMPHOCYTES # (AUTO) 1.83 x10^3/uL (1-3.4); LYMPHOCYTES % (AUTO) 14 % (22-44); MD NO; MEAN CORPUSCULAR HEMOGLOBIN 32.3 pg (27.5-34.5); MEAN CORPUSCULAR HGB CONC 33.3 g/dL (33.2-36.2); MEAN PLATELET VOLUME 8.1 fL (7.4-10.4); MONOCYTES # (AUTO) 0.69 x10^3/uL (0.2-0.8); MONOCYTES % (AUTO) 5 % (2-9); NEUTROPHILS # (AUTO) 10.66 x10^3/uL (1.8-6.8); NEUTROPHILS % (AUTO) 80 % (42-75); PLATELET COUNT 242 x10^3/uL (130-400); RED BLOOD COUNT 3.65 x10^6/uL (4.38-5.82); RED CELL DISTRIBUTION WIDTH 13.9 % (9.4-14.8)
[2018-12-03 05:21] LABS: ANION GAP 6 mmol/L (5-15); CALCIUM 8.2 mg/dL (8.5-10.1); CHLORIDE 105 mmol/L (98-107); CREATININE 0.74 mg/dL (0.7-1.3)
[2018-12-03 07:34] VITALS: BP 164/95
[2018-12-03] MEDS: ENOXAPARIN 100 MG/ML SQ SCH ×2 (09:04→20:08)
[2018-12-03] MEDS: morphine SULFATE 10 MG/ML, 1ML IV PRN ×2 (10:13→17:16)
[2018-12-03] MEDS ORDERED: OMNIPAQUE 350 MG/ML, 100ML BOTTLE ONE (11:45)
[2018-12-03] MEDS: MICAFUNGIN 100 MG in SODIUM CHLORIDE 0.9% 100 ML IV SCH (11:52)
[2018-12-03 13:37] VITALS: BP 131/89
[2018-12-03] MEDS: CALCIUM CARBONATE 500 MG TAB.CHEW PO PRN ×2 (13:43→16:00)
[2018-12-03] MEDS: PIPERACILLIN/TAZO/PMX 3.375GM 50 ML IV SCH ×2 (14:03→20:07)
[2018-12-03] MEDS: DIPHENHYDRAMINE 25 MG CAPSULE PO PRN (16:46)
[2018-12-03] MEDS: FLUCONAZOLE 200 MG TABLET PO SCH (17:16)
[2018-12-03 19:00] VITALS: BP 131/83
[2018-12-03] MEDS: OMEPRAZOLE 20 MG CAPSULE.DR PO SCH (20:08)
[2018-12-03] MEDS: LISINOPRIL 10 MG TABLET PO SCH (20:08)
[2018-12-03] MEDS: D5%-0.45NACL+KCL 20MEQ 1,000 ML IV SCH (21:00)
[2018-12-04 01:39] VITALS: BP 139/88
[2018-12-04] MEDS: PIPERACILLIN/TAZO/PMX 3.375GM 50 ML IV SCH ×4 (01:48→21:04)
[2018-12-04] MEDS: OXYcodone IR 5MG TABLET PO PRN ×6 (01:48→21:04)
[2018-12-04 05:54] LABS: BASOPHILS # (AUTO) 0.08 x10^3/uL (0-0.1); BASOPHILS % (AUTO) 1 % (0-1); EOSINOPHILS # (AUTO) 0.25 x10^3/uL (0-0.4); EOSINOPHILS % (AUTO) 2 % (1-7); LYMPHOCYTES # (AUTO) 2.31 x10^3/uL (1-3.4); LYMPHOCYTES % (AUTO) 15 % (22-44); MD NO; MEAN CORPUSCULAR HEMOGLOBIN 31.9 pg (27.5-34.5); MEAN CORPUSCULAR HGB CONC 33.3 g/dL (33.2-36.2); MEAN PLATELET VOLUME 8.1 fL (7.4-10.4); MONOCYTES # (AUTO) 0.92 x10^3/uL (0.2-0.8); MONOCYTES % (AUTO) 6 % (2-9); NEUTROPHILS % (AUTO) 77 % (42-75); PLATELET COUNT 288 x10^3/uL (130-400); RED BLOOD COUNT 3.63 x10^6/uL (4.38-5.82); RED CELL DISTRIBUTION WIDTH 13.9 % (9.4-14.8)
[2018-12-04 06:07] LABS: ANION GAP 10 mmol/L (5-15); CHLORIDE 101 mmol/L (98-107)
[2018-12-04 06:09] LABS: CALCIUM 8.6 mg/dL (8.5-10.1); CREATININE 0.59 mg/dL (0.7-1.3)
[2018-12-04 06:50] VITALS: BP 134/103
[2018-12-04] MEDS: ENOXAPARIN 100 MG/ML SQ SCH ×2 (08:05→21:04)
[2018-12-04] MEDS: CALCIUM CARBONATE 500 MG TAB.CHEW PO PRN ×2 (08:14→15:47)
[2018-12-04] MEDS ORDERED: FLUCONAZOLE 200 MG TABLET PO SCH (09:00)
[2018-12-04] MEDS: MICAFUNGIN 100 MG in SODIUM CHLORIDE 0.9% 100 ML IV SCH (11:35)
[2018-12-04 12:26] VITALS: BP 137/91
[2018-12-04] MEDS: D5%-0.45NACL+KCL 20MEQ 1,000 ML IV SCH (16:38)
[2018-12-04] MEDS: FLUCONAZOLE 200 MG TABLET PO SCH (16:38)
[2018-12-04 19:56] VITALS: BP 137/83
[2018-12-04] MEDS: OMEPRAZOLE 20 MG CAPSULE.DR PO SCH (21:04)
[2018-12-04] MEDS: LISINOPRIL 10 MG TABLET PO SCH (21:04)
[2018-12-05 00:33] VITALS: BP 117/66
[2018-12-05] MEDS: OXYcodone IR 5MG TABLET PO PRN ×6 (00:53→22:05)
[2018-12-05] MEDS: PIPERACILLIN/TAZO/PMX 3.375GM 50 ML IV SCH ×4 (02:04→19:49)
[2018-12-05 05:28] LABS: MEAN CORPUSCULAR HEMOGLOBIN 32.3 pg (27.5-34.5); MEAN CORPUSCULAR HGB CONC 33.5 g/dL (33.2-36.2); MEAN CORPUSCULAR VOLUME 96.4 fL (81-97); MEAN PLATELET VOLUME 7.8 fL (7.4-10.4); PLATELET COUNT 340 x10^3/uL (130-400); RED BLOOD COUNT 3.48 x10^6/uL (4.38-5.82); RED CELL DISTRIBUTION WIDTH 13.9 % (9.4-14.8)
[2018-12-05 05:40] LABS: ANION GAP 7 mmol/L (5-15); CALCIUM 8.5 mg/dL (8.5-10.1); CHLORIDE 101 mmol/L (98-107); CREATININE 0.72 mg/dL (0.7-1.3)
[2018-12-05 05:56] LABS: BASOPHILS # (AUTO) 0.06 x10^3/uL (0-0.1); BASOPHILS % (AUTO) 0 % (0-1); EOSINOPHILS # (AUTO) 0.35 x10^3/uL (0-0.4); EOSINOPHILS % (AUTO) 3 % (1-7); LYMPHOCYTES # (AUTO) 2.32 x10^3/uL (1-3.4); LYMPHOCYTES % (AUTO) 17 % (22-44); MD SCAN; MONOCYTES # (AUTO) 0.89 x10^3/uL (0.2-0.8); MONOCYTES % (AUTO) 7 % (2-9); NEUTROPHILS # (AUTO) 9.79 x10^3/uL (1.8-6.8); NEUTROPHILS % (AUTO) 73 % (42-75)
[2018-12-05 06:45] VITALS: BP 111/72
[2018-12-05] MEDS: ENOXAPARIN 100 MG/ML SQ SCH ×2 (08:02→19:49)
[2018-12-05] MEDS: MICAFUNGIN 100 MG in SODIUM CHLORIDE 0.9% 100 ML IV SCH (11:28)
[2018-12-05] MEDS: D5%-0.45NACL+KCL 20MEQ 1,000 ML IV SCH (12:34)
[2018-12-05 12:45] VITALS: BP 136/86
[2018-12-05] MEDS: FLUCONAZOLE 200 MG TABLET PO SCH (16:14)
[2018-12-05 18:45] VITALS: BP 133/84
[2018-12-05] MEDS: OMEPRAZOLE 20 MG CAPSULE.DR PO SCH (19:49)
[2018-12-05] MEDS: morphine SULFATE 10 MG/ML, 1ML IV PRN (19:49)
[2018-12-05] MEDS: LISINOPRIL 10 MG TABLET PO SCH (19:49)
[2018-12-06 00:07] VITALS: BP 118/76
[2018-12-06] MEDS: PIPERACILLIN/TAZO/PMX 3.375GM 50 ML IV SCH ×4 (01:58→20:44)
[2018-12-06] MEDS: OXYcodone IR 5MG TABLET PO PRN ×6 (04:35→23:47)
[2018-12-06 04:59] LABS: BASOPHILS # (AUTO) 0.11 x10^3/uL (0-0.1); BASOPHILS % (AUTO) 1 % (0-1); EOSINOPHILS % (AUTO) 4 % (1-7); LYMPHOCYTES # (AUTO) 2.29 x10^3/uL (1-3.4); LYMPHOCYTES % (AUTO) 20 % (22-44); MD NO; MEAN CORPUSCULAR HEMOGLOBIN 31.7 pg (27.5-34.5); MEAN CORPUSCULAR HGB CONC 32.8 g/dL (33.2-36.2); MEAN CORPUSCULAR VOLUME 96.8 fL (81-97); MEAN PLATELET VOLUME 8.3 fL (7.4-10.4); MONOCYTES # (AUTO) 0.74 x10^3/uL (0.2-0.8); MONOCYTES % (AUTO) 6 % (2-9); NEUTROPHILS # (AUTO) 7.98 x10^3/uL (1.8-6.8); NEUTROPHILS % (AUTO) 69 % (42-75); PLATELET COUNT 366 x10^3/uL (130-400); RED BLOOD COUNT 3.43 x10^6/uL (4.38-5.82); RED CELL DISTRIBUTION WIDTH 14.1 % (9.4-14.8)
[2018-12-06 05:10] LABS: ANION GAP 6 mmol/L (5-15); CALCIUM 8.3 mg/dL (8.5-10.1); CHLORIDE 106 mmol/L (98-107); CREATININE 0.69 mg/dL (0.7-1.3)
[2018-12-06 07:50] VITALS: BP 106/67
[2018-12-06] MEDS: ENOXAPARIN 100 MG/ML SQ SCH ×2 (08:10→20:45)
[2018-12-06] MEDS: D5%-0.45NACL+KCL 20MEQ 1,000 ML IV SCH (11:19)
[2018-12-06] MEDS: MICAFUNGIN 100 MG in SODIUM CHLORIDE 0.9% 100 ML IV SCH (12:07)
[2018-12-06 12:50] VITALS: BP 130/76
[2018-12-06] MEDS: FLUCONAZOLE 200 MG TABLET PO SCH (16:59)
[2018-12-06] MEDS: LISINOPRIL 10 MG TABLET PO SCH (20:45)
[2018-12-06] MEDS: OMEPRAZOLE 20 MG CAPSULE.DR PO SCH (20:45)
[2018-12-06 21:33] VITALS: BP 124/79
[2018-12-06] MEDS: CALCIUM CARBONATE 500 MG TAB.CHEW PO PRN (23:47)
[2018-12-07 00:49] VITALS: BP 121/83
[2018-12-07] MEDS: PIPERACILLIN/TAZO/PMX 3.375GM 50 ML IV SCH ×4 (02:40→20:52)
[2018-12-07] MEDS: OXYcodone IR 5MG TABLET PO PRN ×4 (05:06→19:56)
[2018-12-07] MEDS: D5%-0.45NACL+KCL 20MEQ 1,000 ML IV SCH (07:08)
[2018-12-07] MEDS: ENOXAPARIN 100 MG/ML SQ SCH (07:53)
[2018-12-07 08:31] VITALS: BP 116/86
[2018-12-07] MEDS: MICAFUNGIN 100 MG in SODIUM CHLORIDE 0.9% 100 ML IV SCH (12:03)
[2018-12-07 14:00] VITALS: BP 125/86
[2018-12-07] MEDS: FLUCONAZOLE 200 MG TABLET PO SCH (17:33)
[2018-12-07 20:11] VITALS: BP 118/76
[2018-12-07] MEDS: RIVAROXABAN 20 MG TABLET PO SCH (20:52)
[2018-12-07] MEDS: OMEPRAZOLE 20 MG CAPSULE.DR PO SCH (20:52)
[2018-12-07] MEDS: LISINOPRIL 10 MG TABLET PO SCH (20:52)
[2018-12-08] MEDS: OXYcodone IR 5MG TABLET PO PRN ×6 (00:22→21:04)
[2018-12-08 01:55] VITALS: BP 129/83
[2018-12-08] MEDS: PIPERACILLIN/TAZO/PMX 3.375GM 50 ML IV SCH ×3 (02:40→07:59)
[2018-12-08] MEDS: D5%-0.45NACL+KCL 20MEQ 1,000 ML IV SCH (02:45)
[2018-12-08 04:50] LABS: HCT (SEDRATE) 32.4 % (39.2-51.8)
[2018-12-08 05:00] LABS: ALANINE AMINOTRANSFERASE 22 U/L (12-78); ALBUMIN 2.1 g/dL (3.4-5.0); ANION GAP 7 mmol/L (5-15); CHLORIDE 106 mmol/L (98-107); CREATININE 0.71 mg/dL (0.7-1.3)
[2018-12-08 05:08] LABS: ALKALINE PHOSPHATASE 118 U/L (45-117); BILIRUBIN,TOTAL 0.4 mg/dL (0.2-1.0); TOTAL PROTEIN 6.6 g/dL (6.4-8.2)
[2018-12-08 08:11] VITALS: BP 122/83
[2018-12-08] MEDS: MICAFUNGIN 100 MG in SODIUM CHLORIDE 0.9% 100 ML IV SCH (12:11)
[2018-12-08 14:29] VITALS: BP 127/79
[2018-12-08] MEDS: FLUCONAZOLE 200 MG TABLET PO SCH (16:27)
[2018-12-08] MEDS: PIPERACILLIN/TAZO/PMX 4.5GM 100 ML IV SCH (16:27)
[2018-12-08 19:22] VITALS: BP 121/82
[2018-12-08] MEDS: OMEPRAZOLE 20 MG CAPSULE.DR PO SCH (21:02)
[2018-12-08] MEDS: LISINOPRIL 10 MG TABLET PO SCH (21:03)
[2018-12-08] MEDS: RIVAROXABAN 20 MG TABLET PO SCH (21:03)
[2018-12-09] MEDS: D5%-0.45NACL+KCL 20MEQ 1,000 ML IV SCH ×2 (00:11→23:56)
[2018-12-09] MEDS: PIPERACILLIN/TAZO/PMX 4.5GM 100 ML IV SCH ×4 (00:11→23:56)
[2018-12-09] MEDS: OXYcodone IR 5MG TABLET PO PRN ×6 (01:06→23:56)
[2018-12-09 01:18] VITALS: BP 128/75
[2018-12-09 06:45] VITALS: BP 124/80
[2018-12-09] MEDS: MICAFUNGIN 100 MG in SODIUM CHLORIDE 0.9% 100 ML IV SCH (12:26)
[2018-12-09 13:24] VITALS: BP 151/84
[2018-12-09] MEDS: FLUCONAZOLE 200 MG TABLET PO SCH (16:37)
[2018-12-09 20:00] VITALS: BP 120/79
[2018-12-09] MEDS: OMEPRAZOLE 20 MG CAPSULE.DR PO SCH (21:04)
[2018-12-09] MEDS: LISINOPRIL 10 MG TABLET PO SCH (21:05)
[2018-12-09] MEDS: RIVAROXABAN 20 MG TABLET PO SCH (21:05)
[2018-12-10 00:43] VITALS: BP 132/83
[2018-12-10] MEDS: OXYcodone IR 5MG TABLET PO PRN ×2 (04:07→08:04)
[2018-12-10 06:49] VITALS: BP 120/72
[2018-12-10] MEDS: PIPERACILLIN/TAZO/PMX 4.5GM 100 ML IV SCH (08:03)
[2018-12-10] MEDS ORDERED: OXYC-302 PO (09:24)
[2018-12-10] MEDS: MICAFUNGIN 100 MG in SODIUM CHLORIDE 0.9% 100 ML IV SCH (11:56)
== END 2018-12-10 13:32 | disposition home or self-care (01) | DRG 330 ==
LOC: ORIP 09:28 → 4NOR 16:05 → DCLOUNGE 12-10 13:24
PROVIDERS: ADMIT Colon & Rectal Surgery; ATTEND Colon & Rectal Surgery
PROC: 0DN84ZZ Release Small Intestine, Percutaneous Endoscopic Approach (ICD-10-PCS; 2018-11-27)
PROC: 0DBN4ZZ Excision of Sigmoid Colon, Percutaneous Endoscopic Approach (ICD-10-PCS; 2018-11-27)
PROC: 8E0W4CZ Robotic Assisted Procedure of Trunk Region, Percutaneous Endoscopic Approach (ICD-10-PCS; 2018-11-27)
PROC: 0D1N0Z4 Bypass Sigmoid Colon to Cutaneous, Open Approach (ICD-10-PCS; principal; 2018-11-27 11:00)
PROC: 0DB80ZZ Excision of Small Intestine, Open Approach (ICD-10-PCS; 2018-11-28)
PROC: 02HV33Z Insertion of Infusion Device into Superior Vena Cava, Percutaneous Approach (ICD-10-PCS; 2018-12-03)
PROC: B5181ZA Fluoroscopy of Superior Vena Cava using Low Osmolar Contrast, Guidance (ICD-10-PCS; 2018-12-03)
PROC: B548ZZA Ultrasonography of Superior Vena Cava, Guidance (ICD-10-PCS; 2018-12-03)
DX: K57.20 Diverticulitis of large intestine with perforation and abscess without bleeding (principal); B38.9 Coccidioidomycosis, unspecified; D68.51 Activated protein C resistance; I10 Essential (primary) hypertension; E66.9 Obesity, unspecified; D63.8 Anemia in other chronic diseases classified elsewhere; E83.51 Hypocalcemia; F12.90 Cannabis use, unspecified, uncomplicated; K66.0 Peritoneal adhesions (postprocedural) (postinfection); F41.9 Anxiety disorder, unspecified; Z80.1 Family history of malignant neoplasm of trachea, bronchus and lung; Z68.34 Body mass index [BMI] 34.0-34.9, adult; Z86.711 Personal history of pulmonary embolism
CPT/HCPCS: 36415; 36573; 74177; 80048; 80053; 83735; 85025; 85651; 86140; 86850; 86900; 87070; 87075; 87205; 88307; 93005; C1729; G0378; J1100; J1170; J1650; J1885; J2175; J2248; J2250; J2270; J2405; J2543; J2550; J2704; J2710; J3010; Q9967; C1751; C1765; J0330; J0360; J1200; J2765; J3475; J3480; J3490; J7120; Q0163

== ENCOUNTER 2019-06-23 12:24 | Outpatient (CLI) | payer OTHER ==
[~2019-06-23 12:24] MED LIST changes: +OXYC-302 PO
[2019-06-23] MEDS ORDERED: VITA400T6 PO (12:53)
[2019-06-23] MEDS ORDERED: OMEG1CAP23 PO (12:53)
[2019-06-23 13:20] LABS: BASOPHILS # (AUTO) 0.03 x10^3/uL (0-0.1); BASOPHILS % (AUTO) 0 % (0-1); EOSINOPHILS # (AUTO) 0.13 x10^3/uL (0-0.4); EOSINOPHILS % (AUTO) 2 % (1-7); LYMPHOCYTES # (AUTO) 2.95 x10^3/uL (1-3.4); LYMPHOCYTES % (AUTO) 37 % (22-44); MD NO; MEAN CORPUSCULAR HEMOGLOBIN 33.2 pg (27.5-34.5); MEAN CORPUSCULAR HGB CONC 33.9 g/dL (33.2-36.2); MONOCYTES # (AUTO) 0.46 x10^3/uL (0.2-0.8); MONOCYTES % (AUTO) 6 % (2-9); NEUTROPHILS % (AUTO) 55 % (42-75); PLATELET COUNT 249 x10^3/uL (130-400); RED BLOOD COUNT 5.23 x10^6/uL (4.38-5.82); RED CELL DISTRIBUTION WIDTH 13.3 % (9.4-14.8)
[2019-06-23 13:26] LABS: ALBUMIN 4.1 g/dL (3.4-5.0); ANION GAP 7 mmol/L (5-15); CALCIUM 9.5 mg/dL (8.5-10.1); CHLORIDE 108 mmol/L (98-107)
[2019-06-23 13:29] LABS: ALANINE AMINOTRANSFERASE 28 U/L (12-78); ALKALINE PHOSPHATASE 66 U/L (45-117); BILIRUBIN,TOTAL 0.8 mg/dL (0.2-1.0); CREATININE 0.93 mg/dL (0.7-1.3); TOTAL PROTEIN 8.6 g/dL (6.4-8.2)
== END 2019-06-23 23:59 | disposition home or self-care (01) ==
LOC: STAR 12:24
PROVIDERS: ATTEND Colon & Rectal Surgery
DX: Z01.818 Encounter for other preprocedural examination (principal)
CPT/HCPCS: 36415; 80053; 85025; 93005

== ENCOUNTER 2019-07-02 07:11 | Inpatient (IN) | payer OTHER ==
[~2019-07-02] VITALS: Ht 172.7 cm; Wt 97.0 kg
[~2019-07-02 07:11] MED LIST changes: +BUPIVACAINE/PF 0.5% ONE; +OMEG1CAP23 PO; +VITA400T6 PO
[2019-07-02] MEDS ORDERED: LACTATED RINGERS 1,000 ML IV SCH (07:37)
[2019-07-02] MEDS ORDERED: ENOX100S5 SQ (07:37)
[2019-07-02] MEDS ORDERED: GABAPENTIN 300 MG CAPSULE PO ONE (08:00)
[2019-07-02] MEDS ORDERED: ACETAMINOPHEN 500 MG TABLET PO ONE (08:00)
[2019-07-02] MEDS ORDERED: MIDAZOLAM 1 MG/ML, 2ML ONE (08:18)
[2019-07-02] MEDS ORDERED: ROPIvacaine/PF 0.2%, 20 ML ONE ×2 (08:18)
[2019-07-02] MEDS ORDERED: FENTANYL PF 250 MCG/5ML ONE ×2 (08:18→12:05)
[2019-07-02] MEDS ORDERED: ROCURONIUM 10MG/ML,5ML ONE ×3 (08:22→12:05)
[2019-07-02] MEDS ORDERED: CEFOTETAN PMX 2GM/50ML 50 ML ONE (08:22)
[2019-07-02] MEDS ORDERED: GLYCOPYRROLATE 0.2MG/1ML, 5ML ONE (08:22)
[2019-07-02] MEDS ORDERED: PROPOFOL 10 MG/ML, 20ML ONE (08:22)
[2019-07-02] MEDS ORDERED: NEOSTIGMINE 1 MG/ML, 10ML ONE (08:22)
[2019-07-02] MEDS ORDERED: BUPIVACAINE/PF 0.5% ONE (10:04)
[2019-07-02] MEDS ORDERED: INDOCYANINE GREEN 25 MG VIAL ONE (10:04)
[2019-07-02] MEDS ORDERED: MEPERIDINE/PF 25MG/ML,1ML IVPush PRN (10:30)
[2019-07-02] MEDS ORDERED: HYDROmorphone 2 MG/ML, 1ML IVPush PRN (10:30)
[2019-07-02] MEDS ORDERED: FENTANYL PF 100 MCG/2ML IV PRN (10:30)
[2019-07-02] MEDS ORDERED: OXYcodone 5 MG/5 ML ORAL.SOL UDC PO PRN (10:30)
[2019-07-02] MEDS ORDERED: LABETALOL 5MG/ML, 20ML IV PRN (10:30)
[2019-07-02] MEDS ORDERED: PROMETHAZINE 25 MG/ML, 1ML IV PRN (10:30)
[2019-07-02] MEDS ORDERED: DIPHENHYDRAMINE 50 MG/ML, 1ML IVPush PRN ×2 (10:30→16:00)
[2019-07-02] MEDS ORDERED: MORPHINE SULFATE 4 MG/ML, 1ML IVPush PRN ×2 (10:30→16:00)
[2019-07-02] MEDS ORDERED: hydrALAzine 20 MG/ML, 1ML IV PRN (10:30)
[2019-07-02] MEDS ORDERED: ALBUTEROL SULFATE 2.5 MG/3 ML NPPB PRN ×2 (10:30→16:00)
[2019-07-02] MEDS ORDERED: SUGAMMADEX 200 MG/2 ML IVPush ONE (11:36)
[2019-07-02] MEDS ORDERED: KETOROLAC 30 MG/1 ML ONE (12:42)
[2019-07-02] MEDS ORDERED: FENTANYL PF 100 MCG/2ML ONE (14:08)
[2019-07-02] MEDS ORDERED: OXYcodone 5 MG/5 ML ORAL.SOL UDC ONE (14:08)
[2019-07-02] MEDS ORDERED: PROMETHAZINE 25 MG/ML, 1ML ONE (14:16)
[2019-07-02 15:20] VITALS: BP 126/80
[2019-07-02] MEDS ORDERED: DEXAMETHASONE 4 MG/ML, 1ML IVPush PRN (16:00)
[2019-07-02] MEDS ORDERED: CALCIUM CARBONATE 500 MG TAB.CHEW PO PRN (16:00)
[2019-07-02] MEDS ORDERED: HALOPERIDOL 5 MG/ML IVPush PRN (16:00)
[2019-07-02] MEDS ORDERED: LORazepam 1MG TABLET PO PRN (16:00)
[2019-07-02] MEDS ORDERED: ONDANSETRON 2MG/ML, 2ML IV PRN (16:00)
[2019-07-02] MEDS ORDERED: TRAZODONE 50MG TABLET PO PRN (16:00)
[2019-07-02] MEDS ORDERED: SCOPOLAMINE 1MG PATCH TD PRN (16:00)
[2019-07-02] MEDS ORDERED: LORazepam 2 MG/ML, 1ML IVPush PRN (16:00)
[2019-07-02] MEDS: LACTATED RINGERS 1,000 ML IV SCH (16:30)
[2019-07-02] MEDS: ACETAMINOPHEN 500 MG TABLET PO SCH ×2 (18:03→22:06)
[2019-07-02] MEDS: OXYcodone IR 5MG TABLET PO PRN ×2 (18:04→18:54)
[2019-07-02 20:05] VITALS: BP 112/63
[2019-07-02] MEDS: ALPRazolam 1MG TAB PO PRN (20:49)
[2019-07-02] MEDS ORDERED: LISINOPRIL 10 MG TABLET PO SCH (21:00)
[2019-07-03 00:19] VITALS: BP 101/62
[2019-07-03 03:32] VITALS: BP 113/71
[2019-07-03 03:39] LABS: BASOPHILS # (AUTO) 0.04 x10^3/uL (0-0.1); BASOPHILS % (AUTO) 0 % (0-1); EOSINOPHILS # (AUTO) 0.11 x10^3/uL (0-0.4); EOSINOPHILS % (AUTO) 1 % (1-7); LYMPHOCYTES # (AUTO) 2.83 x10^3/uL (1-3.4); LYMPHOCYTES % (AUTO) 25 % (22-44); MD NO; MEAN CORPUSCULAR HEMOGLOBIN 33.4 pg (27.5-34.5); MEAN CORPUSCULAR HGB CONC 34.3 g/dL (33.2-36.2); MEAN CORPUSCULAR VOLUME 97.2 fL (81-97); MEAN PLATELET VOLUME 7.9 fL (7.4-10.4); MONOCYTES # (AUTO) 0.96 x10^3/uL (0.2-0.8); MONOCYTES % (AUTO) 9 % (2-9); NEUTROPHILS # (AUTO) 7.27 x10^3/uL (1.8-6.8); NEUTROPHILS % (AUTO) 65 % (42-75); PLATELET COUNT 246 x10^3/uL (130-400); RED BLOOD COUNT 4.65 x10^6/uL (4.38-5.82); RED CELL DISTRIBUTION WIDTH 13.2 % (9.4-14.8)
[2019-07-03] MEDS: OXYcodone IR 5MG TABLET PO PRN ×4 (03:46→19:25)
[2019-07-03 03:48] LABS: ANION GAP 2 mmol/L (5-15); CALCIUM 8.4 mg/dL (8.5-10.1); CHLORIDE 106 mmol/L (98-107); CREATININE 1.25 mg/dL (0.7-1.3)
[2019-07-03] MEDS: ACETAMINOPHEN 500 MG TABLET PO SCH ×4 (04:23→23:36)
[2019-07-03 07:01] VITALS: BP 126/82
[2019-07-03] MEDS: FLUCONAZOLE 200 MG TABLET PO SCH (08:42)
[2019-07-03] MEDS: ENOXAPARIN 100 MG/ML SQ SCH ×2 (08:43→21:13)
[2019-07-03] MEDS: LISINOPRIL 10 MG TABLET PO SCH (08:43)
[2019-07-03] MEDS: ALPRazolam 1MG TAB PO PRN ×2 (08:52→19:25)
[2019-07-03] MEDS: DIPHENHYDRAMINE 25 MG CAPSULE PO PRN (08:52)
[2019-07-03] MEDS ORDERED: ENOXAPARIN 40 MG/0.4 ML SQ SCH (09:00)
[2019-07-03 10:12] VITALS: BP 119/80
[2019-07-03] MEDS: KETOROLAC 30 MG/1 ML IV SCH ×3 (11:13→23:35)
[2019-07-03] MEDS: LACTATED RINGERS 1,000 ML IV SCH (11:57)
[2019-07-03 13:28] VITALS: BP 106/69
[2019-07-03 20:20] VITALS: BP 99/63
[2019-07-04] MEDS: OXYcodone IR 5MG TABLET PO PRN ×3 (01:36→09:56)
[2019-07-04 01:55] VITALS: BP 101/67
[2019-07-04] MEDS: KETOROLAC 30 MG/1 ML IV SCH (05:35)
[2019-07-04] MEDS: ACETAMINOPHEN 500 MG TABLET PO SCH (05:36)
[2019-07-04] MEDS: ALPRazolam 1MG TAB PO PRN (05:36)
[2019-07-04 05:40] LABS: BASOPHILS # (AUTO) 0.06 x10^3/uL (0-0.1); BASOPHILS % (AUTO) 1 % (0-1); EOSINOPHILS # (AUTO) 0.27 x10^3/uL (0-0.4); EOSINOPHILS % (AUTO) 3 % (1-7); LYMPHOCYTES # (AUTO) 3.46 x10^3/uL (1-3.4); LYMPHOCYTES % (AUTO) 36 % (22-44); MD NO; MEAN CORPUSCULAR HEMOGLOBIN 33.8 pg (27.5-34.5); MEAN CORPUSCULAR HGB CONC 34.5 g/dL (33.2-36.2); MEAN CORPUSCULAR VOLUME 98.1 fL (81-97); MEAN PLATELET VOLUME 7.9 fL (7.4-10.4); MONOCYTES % (AUTO) 7 % (2-9); NEUTROPHILS # (AUTO) 5.19 x10^3/uL (1.8-6.8); NEUTROPHILS % (AUTO) 54 % (42-75); PLATELET COUNT 213 x10^3/uL (130-400); RED BLOOD COUNT 4.43 x10^6/uL (4.38-5.82); RED CELL DISTRIBUTION WIDTH 12.9 % (9.4-14.8)
[2019-07-04 06:31] LABS: ANION GAP 5 mmol/L (5-15); CALCIUM 8.9 mg/dL (8.5-10.1); CHLORIDE 105 mmol/L (98-107); CREATININE 1.12 mg/dL (0.7-1.3)
[2019-07-04 07:02] VITALS: BP 104/69
[2019-07-04] MEDS: DIPHENHYDRAMINE 25 MG CAPSULE PO PRN (07:38)
[2019-07-04] MEDS: LACTATED RINGERS 1,000 ML IV SCH (08:30)
[2019-07-04] MEDS: FLUCONAZOLE 200 MG TABLET PO SCH (08:43)
[2019-07-04] MEDS: ENOXAPARIN 100 MG/ML SQ SCH (08:43)
[2019-07-04] MEDS: LISINOPRIL 10 MG TABLET PO SCH (08:44)
[2019-07-04] MEDS ORDERED: OXYC-302 PO (09:06)
== END 2019-07-04 10:50 | disposition home or self-care (01) | DRG 331 ==
LOC: ORIP 07:11 → 4NE 15:13 → DCLOUNGE 07-04 10:22
PROVIDERS: ADMIT Colon & Rectal Surgery; ATTEND Colon & Rectal Surgery
PROC: 0DNL0ZZ Release Transverse Colon, Open Approach (ICD-10-PCS; 2019-07-02)
PROC: 8E0W0CZ Robotic Assisted Procedure of Trunk Region, Open Approach (ICD-10-PCS; 2019-07-02)
PROC: 3E0T3BZ Introduction of Anesthetic Agent into Peripheral Nerves and Plexi, Percutaneous Approach (ICD-10-PCS; 2019-07-02)
PROC: 0DBM0ZZ Excision of Descending Colon, Open Approach (ICD-10-PCS; principal; 2019-07-02 09:30)
DX: Z43.3 Encounter for attention to colostomy (principal); I10 Essential (primary) hypertension; F41.9 Anxiety disorder, unspecified; K21.9 Gastro-esophageal reflux disease without esophagitis; Z80.1 Family history of malignant neoplasm of trachea, bronchus and lung; E66.9 Obesity, unspecified; Z68.32 Body mass index [BMI] 32.0-32.9, adult
CPT/HCPCS: 36415; S0020; 80048; 83735; 85025; 88304; 88307; C1729; G0378; J1650; J1885; J2250; J2550; J2704; J2710; J2795; J3010; J1200; J3490; J7120; Q0163